=== PATIENT | female | born 1955 | race Caucasian/White ===

== ENCOUNTER 2021-04-27 12:29 | Emergency (ER) | payer MEDICAID ==
[~2021-04-27] VITALS: Ht 165.1 cm; Wt 113.6 kg
[2021-04-27 12:41] VITALS: BP 167/92
[2021-04-27] MEDS ORDERED: lactulose 20gm/30ml cup PO ONE (17:10)
[2021-04-27] MEDS ORDERED: POLY17PO10 PO (17:14)
== END 2021-04-27 18:29 | disposition home or self-care (01) ==
LOC: ER 12:30
DX: K59.00 Constipation, unspecified (principal); R10.84 Generalized abdominal pain; Z88.1 Allergy status to other antibiotic agents; Z88.8 Allergy status to other drugs, medicaments and biological substances
CPT/HCPCS: 74176; 99284

== ENCOUNTER 2021-05-06 17:45 | Emergency (ER) | payer MEDICAID ==
[~2021-05-06] VITALS: Ht 167.6 cm; Wt 84.1 kg
[~2021-05-06 17:45] MED LIST: POLY17PO10 PO
--- NOTE | 2021-05-06 18:27 | NUR ---
assumed care of pt. pt roomed in bed 8. pt lying comfortably in [facility].
[2021-05-06 18:56] LABS: BASOPHILS # (AUTO) 0.1 X10'3 (0-0.2); BASOPHILS % (AUTO) 1.3 % (0-1); EOSINOPHILS # (AUTO) 0.1 X10'3 (0-0.9); EOSINOPHILS % (AUTO) 1.7 % (0-6); HEMATOCRIT 37.4 % (35.0-45.0); HEMOGLOBIN 13.2 g/dl (12.0-16.0); LYMPHOCYTES # (AUTO) 1.4 X10'3 (1.1-4.8); LYMPHOCYTES % (AUTO) 17.2 % (21-51); MEAN CORPUSCULAR HEMOGLOBIN 29.3 PG (27.0-31.0); MEAN CORPUSCULAR HGB CONC 35.3 g/dL (33.0-36.5); MEAN PLATELET VOLUME 6.3 FL (7.4-10.4); MONOCYTES % (AUTO) 12.1 % (2-12); NEUTROPHILS # (AUTO) 5.6 X10'3 (1.8-7.7); NEUTROPHILS % (AUTO) 67.7 % (42-75); PLATELET COUNT 358 X10'3 (140-440); RED CELL DISTRIBUTION WIDTH 13.5 % (11.5-14.5); WHITE BLOOD COUNT 8.2 X10'3 (4.5-11.0)
[2021-05-06 19:13] LABS: ALANINE AMINOTRANSFERASE 24 U/L (12-78); ALBUMIN 3.6 G/DL (3.4-5.0); ALBUMIN/GLOBULIN RATIO 1.1 (1.1-1.5); ALKALINE PHOSPHATASE 79 IU/L (46-116); ANION GAP 6 (8-16); ASPARTATE AMINO TRANSFERASE 18 U/L (10-37); BILIRUBIN,TOTAL 0.3 MG/DL (0.1-1.0); BLOOD UREA NITROGEN 12 MG/DL (7-18); BUN/CREATININE RATIO 10.8 (6.6-38.0); CALCIUM 9.3 MG/DL (8.5-10.1); CHLORIDE 94 MMOL/L (99-107); CREATININE 1.11 MG/DL (0.40-0.90); GLUCOSE 90 MG/DL (70-104); POTASSIUM 4.3 MMOL/L (3.5-5.1); SODIUM 126 MMOL/L (135-145); TOTAL CARBON DIOXIDE 26.4 MMOL/L (24-32); TOTAL PROTEIN 6.9 G/DL (6.4-8.2); eGFR 49 ML/MIN
[2021-05-06 19:26] LABS: ACETAMINOPHEN < 2.0 UG/ML (10-30); ETHANOL < 0.010 GM/DL (0.0-0.010)
[2021-05-06] MEDS ORDERED: OLANZapine 5mg rapidly disint. tablet PO ONE (19:40)
--- NOTE | 2021-05-06 19:50 | NUR ---
[employer] [facility] [place], ELIU, CALLED TO CHECK UP ON PT'S STATUS. HER PHONE NUMBER IS [phone].
[2021-05-06 19:57] LABS: CLARITY,URINE CLEAR (Clear); COLOR,URINE YELLOW (Yellow); GLUCOSE, URINE NEGATIVE (Neg); KETONES,URINE NEGATIVE (Neg); LEUKOCYTE ESTERASE ,URINE NEGATIVE (Neg); NITRITES, URINE NEGATIVE (Neg); OCCULT BLOOD,URINE TRACE-INTACT (Neg); PH,URINE 6.5 (4.8-8.0); PROTEIN,URINE NEGATIVE (Neg); UA COLLECTION TYPE NON-SPECIFIED; UROBILINOGEN,URINE 0.2 E.U/dL (0.2-1.0)
--- NOTE | 2021-05-06 20:00 | NUR ---
PT SITTING ON BED CALMLY. INTERVIEWED PT BRIEFLY. SHE STATED THAT SHE HAS BEEN HALLUCINATING MORE RECENTLY AND TODAY HAD A DESIRE TO "CUT HEART WITH A KNIFE". SHE STATED THAT SHE "STOPPED [HER]SELF" FROM DOING IT. SHE HAS NO OTHER COMPLAINTS. PT IS ABLE TO AMBULATE FROM [place] TO BEDSIDE COMMODE. PT MAKES EYE CONTACT WHEN SPEAKING THOUGH W/ FLAT AFFECT; OVERALL POLITE.
[2021-05-06 20:07] LABS: URINE AMPHETAMINE SCREEN NEGATIVE (Neg); URINE BARBITUATE SCREEN NEGATIVE (Neg); URINE BENZODIAZEPINES SCREEN NEGATIVE (Neg); URINE CANNABINOID SCREEN NEGATIVE (Neg); URINE COCAINE SCREEN NEGATIVE (Neg); URINE METHADONE SCREEN NEGATIVE (Neg); URINE OPIATE SCREEN NEGATIVE (Neg); URINE PHENCYCLIDINE SCREEN NEGATIVE (Neg)
[2021-05-06 20:09] LABS: BACTERIA,URINE NONE SEEN /HPF (Neg); RBC,URINE 0-2 /HPF (0-2); SQUAMOUS EPITHELIAL CELL,UR NONE SEEN /LPF (FEW); WBC,URINE NONE SEEN /HPF (0-4)
--- NOTE | 2021-05-06 21:00 | NUR ---
PT IS LYING DOWN IN BED COMFORTABLY. ANSWERS QUESTIONS BUT DOES NOT INITIATE CONVERSATION
--- NOTE | 2021-05-06 22:00 | NUR ---
PT IS LYING DOWN IN [facility] WATCHING PEOPLE WALK UP AND DOWN SEE.
--- NOTE | 2021-05-06 23:00 | NUR ---
PT IS ATTEMPTING TO SLEEP. LIGHTS HAVE BEEN DIMMED W/ PT'S PERMISSION
--- NOTE | 2021-05-07 | NUR ---
PT IS SLEEPING COMFORTABLY
--- NOTE | 2021-05-07 01:00 | NUR ---
PT IS SLEEPING COMFORTABLY
--- NOTE | 2021-05-07 02:00 | NUR ---
PT GOT UP TO USE BEDSIDE COMMODE.
[2021-05-07 02:46] VITALS: BP 145/64
--- NOTE | 2021-05-07 03:00 | NUR ---
PT CHANGED INTO GREEN SCRUBS
--- NOTE | 2021-05-07 04:29 | NUR ---
PT GOT UP TO USE BEDSIDE COMMODE.
--- NOTE | 2021-05-07 05:30 | NUR ---
PT MOVED TO HER RIGHT SIDE AND CONTINUES TO SLEEP
--- NOTE | 2021-05-07 06:50 | NUR ---
pt resting in bed quietly ,will cont to monitor.
--- NOTE | 2021-05-07 08:10 | NUR ---
PACKET FAXED TO [facility]
--- NOTE | 2021-05-07 08:47 | NUR ---
ELIU [phone] PLEASE CALL WITH UPDATE WHEN AVAILABE
--- NOTE | 2021-05-07 09:21 | NUR ---
[facility] EVAL AT BEDSIDE .
--- NOTE | 2021-05-07 10:01 | NUR ---
CALLED ALMAZ CHARLES FOR PT TO BE DISCHARGED AND TAKEN BACK TO [facility]...[phone]
== END 2021-05-07 11:29 | disposition home or self-care (01) ==
LOC: ER 17:45
DX: R45.851 Suicidal ideations (principal); E87.1 Hypo-osmolality and hyponatremia; F20.9 Schizophrenia, unspecified; F41.9 Anxiety disorder, unspecified; Z87.19 Personal history of other diseases of the digestive system; Z88.2 Allergy status to sulfonamides; Z88.8 Allergy status to other drugs, medicaments and biological substances; Z79.899 Other long term (current) drug therapy
CPT/HCPCS: 36415; 80053; 80305; 80320; 80329; 81001; 84295; 84443; 85025; 99285

== ENCOUNTER 2022-08-31 15:06 | Emergency (ER) | payer MEDICAID ==
[~2022-08-31] VITALS: Ht 172.7 cm; Wt 127.3 kg
[2022-08-31 17:36] LABS: BASOPHILS % (AUTO) 0.5 % (0-1); EOSINOPHILS # (AUTO) 0.2 X10'3 (0-0.9); HEMATOCRIT 42.1 % (35.0-45.0); HEMOGLOBIN 13.6 g/dl (12.0-16.0); LYMPHOCYTES # (AUTO) 1.8 X10'3 (1.1-4.8); MEAN CORPUSCULAR HEMOGLOBIN 29.3 PG (27.0-31.0); MEAN CORPUSCULAR HGB CONC 32.2 g/dL (33.0-36.5); MEAN PLATELET VOLUME 6.4 FL (7.4-10.4); MONOCYTES # (AUTO) 0.8 X10'3 (0-0.9); MONOCYTES % (AUTO) 12.9 % (2-12); NEUTROPHILS # (AUTO) 3.7 X10'3 (1.8-7.7); NEUTROPHILS % (AUTO) 56.6 % (42-75); PLATELET COUNT 304 X10'3 (140-440); RED BLOOD COUNT 4.63 X10'6 (4.20-5.60); RED CELL DISTRIBUTION WIDTH 13.5 % (11.5-14.5); WHITE BLOOD COUNT 6.5 X10'3 (4.5-11.0)
[2022-08-31 17:57] LABS: ALANINE AMINOTRANSFERASE 24 U/L (12-78); ALBUMIN 3.8 G/DL (3.4-5.0); ALBUMIN/GLOBULIN RATIO 1.1 (1.1-1.5); ALKALINE PHOSPHATASE 87 IU/L (46-116); ANION GAP 7 (8-16); ASPARTATE AMINO TRANSFERASE 23 U/L (10-37); BILIRUBIN,TOTAL 0.3 MG/DL (0.1-1.0); BLOOD UREA NITROGEN 9 MG/DL (7-18); BUN/CREATININE RATIO 8.4 (10.0-20.0); CALCIUM 10.2 MG/DL (8.5-10.1); CHLORIDE 103 MMOL/L (99-107); CREATININE 1.07 MG/DL (0.40-0.90); GLUCOSE 105 MG/DL (70-104); POTASSIUM 4.1 MMOL/L (3.5-5.1); SODIUM 139 MMOL/L (135-145); TOTAL CARBON DIOXIDE 28.9 MMOL/L (24-32); TOTAL PROTEIN 7.4 G/DL (6.4-8.2); eGFR 51 ML/MIN
[2022-08-31 18:01] LABS: CLARITY,URINE CLEAR (Clear); COLOR,URINE YELLOW (Yellow); GLUCOSE, URINE NEGATIVE (Neg); KETONES,URINE NEGATIVE (Neg); LEUKOCYTE ESTERASE ,URINE NEGATIVE (Neg); NITRITES, URINE NEGATIVE (Neg); OCCULT BLOOD,URINE TRACE-INTACT (Neg); PH,URINE 7.5 (4.8-8.0); PROTEIN,URINE NEGATIVE (Neg)
[2022-08-31 18:03] VITALS: BP 158/79
[2022-08-31 18:05] LABS: UA COLLECTION TYPE CLN CATCH MIDSTREAM
[2022-08-31 18:06] LABS: BACTERIA,URINE NONE SEEN /HPF (Neg); MUCUS STRANDS FEW /LPF (Neg); RBC,URINE 0-2 /HPF (0-2); SQUAMOUS EPITHELIAL CELL,UR FEW /LPF (FEW); WBC,URINE 0-4 /HPF (0-4)
== END 2022-08-31 21:56 ==
LOC: ER 15:06
DX: R40.4 Transient alteration of awareness (principal); F31.9 Bipolar disorder, unspecified; F20.9 Schizophrenia, unspecified; Z88.2 Allergy status to sulfonamides
CPT/HCPCS: 36415; 80053; 81001; 85025; 93005; 99284

== ENCOUNTER 2022-09-01 20:04 | Emergency (ER) | payer MEDICAID ==
[~2022-09-01] VITALS: Ht 152.4 cm; Wt 107.7 kg
[2022-09-01 20:27] VITALS: BP 142/80
== END 2022-09-01 22:26 | disposition home or self-care (01) ==
LOC: ER 20:04
DX: F20.9 Schizophrenia, unspecified (principal); F31.9 Bipolar disorder, unspecified; Z88.2 Allergy status to sulfonamides; Z88.8 Allergy status to other drugs, medicaments and biological substances; Z79.899 Other long term (current) drug therapy
CPT/HCPCS: 99283

== ENCOUNTER 2022-10-23 18:49 | Emergency (ER) | payer MEDICAID ==
[~2022-10-23] VITALS: Ht 157.5 cm; Wt 109.1 kg
[2022-10-23 19:05] VITALS: BP 154/74
== END 2022-10-23 20:34 | disposition home or self-care (01) ==
LOC: ER 18:50
DX: S09.90XA Unspecified injury of head, initial encounter (principal); F31.9 Bipolar disorder, unspecified; F20.9 Schizophrenia, unspecified; Z79.899 Other long term (current) drug therapy; Z88.2 Allergy status to sulfonamides; Z88.8 Allergy status to other drugs, medicaments and biological substances; W18.39XA Other fall on same level, initial encounter; Y93.89 Activity, other specified; Y92.89 Other specified places as the place of occurrence of the external cause; Y99.8 Other external cause status
CPT/HCPCS: 70450; 99284

== ENCOUNTER 2023-05-19 18:02 | Emergency (ER) | payer MEDICAID ==
[~2023-05-19] VITALS: Ht 165.1 cm; Wt 135.0 kg
[2023-05-19 18:27] VITALS: TEMP 98.4
[2023-05-19] MEDS ORDERED: TETanus/Pertussis (Acell)/Diphther VAC/PF (Tdap-Adult) 0.5ml syringe IMVAC ONE (20:20)
[2023-05-19] MEDS ORDERED: celeCOXIB 100mg capsule PO ONE (21:50)
[2023-05-19] MEDS ORDERED: traMADol 50MG tablet PO ONE (22:20)
[2023-05-19 22:35] VITALS: BP 157/81; PULSE 54; RESP 18; O2SAT 100
== END 2023-05-19 22:37 | disposition home or self-care (01) ==
LOC: ER 18:03
DX: S16.1XXA Strain of muscle, fascia and tendon at neck level, initial encounter (principal); S00.31XA Abrasion of nose, initial encounter; G80.8 Other cerebral palsy; W18.39XA Other fall on same level, initial encounter; Y93.89 Activity, other specified; Y92.89 Other specified places as the place of occurrence of the external cause; Y99.8 Other external cause status
CPT/HCPCS: 70450; 72125; 90471; 90715; 93005; 99285; L0172

== ENCOUNTER 2023-06-02 13:04 | Inpatient (IN) | payer MEDICAID ==
[~2023-06-02] VITALS: Ht 165.1 cm; Wt 109.4 kg
[2023-06-02] MEDS ORDERED: iohexol 350MG/ML 100ml bottle IV ONE (13:31)
[2023-06-02 13:53] LABS: BASOPHILS % (AUTO) 0.4 % (0-1); EOSINOPHILS % (AUTO) 0 % (0-6); HEMATOCRIT 36.9 % (35.0-45.0); HEMOGLOBIN 12.5 g/dl (12.0-16.0); LYMPHOCYTES # (AUTO) 0.6 X10'3 (1.1-4.8); MEAN CORPUSCULAR HEMOGLOBIN 29.5 PG (27.0-31.0); MEAN CORPUSCULAR HGB CONC 33.8 g/dL (33.0-36.5); MEAN CORPUSCULAR VOLUME 87.2 FL (78-98); MEAN PLATELET VOLUME 6.7 FL (7.4-10.4); MONOCYTES % (AUTO) 13.8 % (2-12); NEUTROPHILS # (AUTO) 5.8 X10'3 (1.8-7.7); NEUTROPHILS % (AUTO) 77.8 % (42-75); PLATELET COUNT 206 X10'3 (140-440); RED BLOOD COUNT 4.23 X10'6 (4.20-5.60); WHITE BLOOD COUNT 7.4 X10'3 (4.5-11.0)
[2023-06-02 14:10] LABS: APTT 34 SECONDS (22-32); INR 1.1 INR; PROTHROMBIN TIME 11.5 SECONDS (9.0-12.0)
[2023-06-02] MEDS ORDERED: ringers solution, lacted 1,000 ML IV ONE (14:15)
[2023-06-02 14:29] LABS: ALANINE AMINOTRANSFERASE 38 U/L (12-78); ALBUMIN/GLOBULIN RATIO 0.9 (1.1-1.5); ALKALINE PHOSPHATASE 75 IU/L (46-116); ANION GAP 12 (8-16); ASPARTATE AMINO TRANSFERASE 36 U/L (10-37); BILIRUBIN,TOTAL 0.7 MG/DL (0.1-1.0); BLOOD UREA NITROGEN 11 MG/DL (7-18); BUN/CREATININE RATIO 8.5 (10.0-20.0); CALCIUM 8.4 MG/DL (8.5-10.1); CHLORIDE 94 MMOL/L (99-107); GLUCOSE 117 MG/DL (70-104); POTASSIUM 3.3 MMOL/L (3.5-5.1); SODIUM 126 MMOL/L (135-145); TOTAL CARBON DIOXIDE 20.4 MMOL/L (24-32); TOTAL PROTEIN 6.3 G/DL (6.4-8.2); eGFR 41 ML/MIN
[2023-06-02 14:37] LABS: PRO BRAIN NATRIURETIC PEPTIDE 5370 PG/ML (0-125)
[2023-06-02] MEDS ORDERED: ZOLP5TAB8 PO (15:33)
[2023-06-02] MEDS ORDERED: OMEP20CA16 PO (15:33)
[2023-06-02] MEDS ORDERED: CLON-527 PO (15:34)
[2023-06-02] MEDS ORDERED: QUET-1 PO (15:34)
[2023-06-02] MEDS ORDERED: FERR325T35 PO (15:36)
[2023-06-02] MEDS ORDERED: FLUO20CA39 PO (15:42)
[2023-06-02] MEDS ORDERED: LURA20TA8 PO (15:42)
[2023-06-02] MEDS ORDERED: CHOL50004 PO (15:42)
[2023-06-02] MEDS ORDERED: LURA120T PO (15:42)
[2023-06-02] MEDS ORDERED: TRAM50TA2 PO (15:42)
[2023-06-02 16:24] LABS: BILIRUBIN,URINE NEGATIVE (Neg); CLARITY,URINE CLEAR (Clear); COLOR,URINE YELLOW (Yellow); GLUCOSE, URINE NEGATIVE (Neg); KETONES,URINE NEGATIVE (Neg); LEUKOCYTE ESTERASE ,URINE NEGATIVE (Neg); NITRITES, URINE NEGATIVE (Neg); OCCULT BLOOD,URINE TRACE-INTACT (Neg); PROTEIN,URINE NEGATIVE (Neg); UROBILINOGEN,URINE 0.2 E.U/dL (0.2-1.0)
[2023-06-02 16:27] LABS: UA COLLECTION TYPE FOLEY CATH
[2023-06-02 16:34] LABS: WBC,URINE 0-4 /HPF (0-4)
[2023-06-02 16:35] LABS: BACTERIA,URINE NONE SEEN /HPF (Neg); MUCUS STRANDS NONE SEEN /LPF (Neg); RBC,URINE 0-2 /HPF (0-2); SQUAMOUS EPITHELIAL CELL,UR FEW /LPF (FEW)
[2023-06-02] MEDS ORDERED: temazepam 15mg capsule PO PRN (21:00)
[2023-06-02] MEDS ORDERED: ondansetron 4mg rapidly disintigrating tab PO PRN (21:45)
[2023-06-02] MEDS ORDERED: bisacodyl 10mg suppository rectal RC PRN (21:45)
[2023-06-02] MEDS ORDERED: acetaminophen 325mg tablet PO PRN ×2 (21:45)
[2023-06-02] MEDS ORDERED: morphine 2 MG/ML inj. syringe IV PRN (21:45)
[2023-06-02] MEDS ORDERED: mag hydrox/Alum hydrox/simeth 30ml oral suspension PO PRN (21:45)
[2023-06-02] MEDS ORDERED: ondansetron/PF 4mg/2ml inj IV PRN (21:45)
[2023-06-02] MEDS ORDERED: potassium Cl 20 mEq SR tablet PO PRN ×2 (21:45)
[2023-06-02] MEDS ORDERED: magnesium hydroxide 30ml (MOM) UD suspension PO PRN (21:45)
[2023-06-02] MEDS ORDERED: diphenhydrAMINE 25mg capsule PO PRN (21:45)
[2023-06-02] MEDS ORDERED: diphenhydrAMINE 50 mg/ml inj IV PRN (21:45)
[2023-06-02] MEDS ORDERED: potassium Cl 40MEQ/1/2NS 520ml 520 ML IV PRN (21:45)
[2023-06-02] MEDS ORDERED: HYDROcodone/acetaminophen 5mg/325mg tablet PO PRN (21:45)
[2023-06-02] MEDS ORDERED: potassium Cl 20mEq in NS 1,000 ML IV SCH (21:45)
[2023-06-02 22:08] LABS: HEMOGLOBIN A1C 5.4 % (4.5-6.2)
[2023-06-02 22:10] LABS: MAGNESIUM 1.5 MG/DL (1.5-2.4)
[2023-06-02 23:58] LABS: APTT 26 SECONDS (22-32); D-DIMER 0.62 MG/L FEU (0-0.50); PROTHROMBIN TIME 10.5 SECONDS (9.0-12.0)
[2023-06-03] MEDS ORDERED: TRAM50TA2 PO (01:39)
[2023-06-03] MEDS ORDERED: CLON-527 PO (01:42)
[2023-06-03] MEDS ORDERED: benzotropine (01:48)
[2023-06-03] MEDS ORDERED: Metoprolol (01:50)
[2023-06-03 01:51] VITALS: BP 143/68; PULSE 68; RESP 16; TEMP 98.1; O2SAT 97
[2023-06-03 03:14] LABS: URINE AMPHETAMINE SCREEN NEGATIVE (Neg); URINE BARBITUATE SCREEN NEGATIVE (Neg); URINE BENZODIAZEPINES SCREEN NEGATIVE (Neg); URINE CANNABINOID SCREEN NEGATIVE (Neg); URINE COCAINE SCREEN NEGATIVE (Neg); URINE METHADONE SCREEN NEGATIVE (Neg); URINE OPIATE SCREEN NEGATIVE (Neg); URINE PHENCYCLIDINE SCREEN NEGATIVE (Neg)
[2023-06-03 06:00] VITALS: BP 136/61; PULSE 61; RESP 14; TEMP 99.1; O2SAT 97
[2023-06-03 06:56] LABS: BASOPHILS % (AUTO) 0.3 % (0-1); EOSINOPHILS % (AUTO) 0.1 % (0-6); HEMATOCRIT 35.8 % (35.0-45.0); HEMOGLOBIN 11.9 g/dl (12.0-16.0); LYMPHOCYTES # (AUTO) 0.8 X10'3 (1.1-4.8); LYMPHOCYTES % (AUTO) 17.5 % (21-51); MEAN CORPUSCULAR HEMOGLOBIN 29.3 PG (27.0-31.0); MEAN CORPUSCULAR HGB CONC 33.3 g/dL (33.0-36.5); MONOCYTES # (AUTO) 0.8 X10'3 (0-0.9); MONOCYTES % (AUTO) 17.4 % (2-12); NEUTROPHILS # (AUTO) 3.1 X10'3 (1.8-7.7); NEUTROPHILS % (AUTO) 64.7 % (42-75); PLATELET COUNT 168 X10'3 (140-440); RED BLOOD COUNT 4.07 X10'6 (4.20-5.60); RED CELL DISTRIBUTION WIDTH 13.1 % (11.5-14.5); WHITE BLOOD COUNT 4.9 X10'3 (4.5-11.0)
[2023-06-03 07:02] LABS: ALANINE AMINOTRANSFERASE 50 U/L (12-78); ALBUMIN 3.2 G/DL (3.4-5.0); ALBUMIN/GLOBULIN RATIO 0.9 (1.1-1.5); ALKALINE PHOSPHATASE 69 IU/L (46-116); ANION GAP 6 (8-16); ASPARTATE AMINO TRANSFERASE 43 U/L (10-37); BILIRUBIN,TOTAL 0.5 MG/DL (0.1-1.0); BLOOD UREA NITROGEN 11 MG/DL (7-18); BUN/CREATININE RATIO 12.4 (10.0-20.0); CHLORIDE 94 MMOL/L (99-107); CHOL/HDL RATIO 1.7 (0.00-4.99); CHOLESTEROL 81 MG/DL (0-200); CREATININE 0.89 MG/DL (0.40-0.90); GLUCOSE 93 MG/DL (70-104); HDL CHOLESTEROL 47 MG/DL (35-60); LDL CHOLESTEROL 26 MG/DL (50-100); MAGNESIUM 1.8 MG/DL (1.5-2.4); POTASSIUM 3.7 MMOL/L (3.5-5.1); SODIUM 126 MMOL/L (135-145); TOTAL CARBON DIOXIDE 25.6 MMOL/L (24-32); TOTAL PROTEIN 6.8 G/DL (6.4-8.2); TRIGLYCERIDES 39 MG/DL (20-135); eCRCL 56 ML/MIN; eGFR 63 ML/MIN
[2023-06-03] MEDS ORDERED: FLUoxetine 20mg capsule PO PRN (07:40)
[2023-06-03] MEDS ORDERED: traMADol 50MG tablet PO PRN (07:40)
[2023-06-03] MEDS ORDERED: LOP12.5T PO (08:01)
[2023-06-03 08:40] LABS: PLATELET ESTIMATE NORMAL; TOTAL CELLS COUNTED 100
[2023-06-03] MEDS: cholecalciferol (vitamin D3) 1,000 unit (25mcg) tablet PO SCH (09:57)
[2023-06-03] MEDS: docusate sod 100mg capsule PO SCH ×2 (09:58→17:18)
[2023-06-03] MEDS: ferrous sulfate 325mg tablet PO SCH (09:58)
[2023-06-03 10:00] VITALS: BP 142/67; PULSE 71; RESP 15; TEMP 99; O2SAT 95
[2023-06-03] MEDS: metoprolol tartrate 25mg tablet PO SCH (10:00)
[2023-06-03] MEDS: heparin, porcine 5000 units/ml vial SQ SCH ×2 (10:04→21:01)
[2023-06-03] MEDS: pantoprazole 40mg Tablet.DR PO SCH (10:06)
[2023-06-03] MEDS: normal saline 1000ml 1,000 ML IV SCH ×2 (10:14→17:45)
[2023-06-03] MEDS ORDERED: lurasidone 60mg tablet PO SCH (21:00)
[2023-06-03] MEDS ORDERED: benztropine 1mg tablet PO SCH (21:00)
[2023-06-03] MEDS ORDERED: quetiapine 100mg tablet PO SCH (21:00)
[2023-06-03] MEDS ORDERED: zolpidem 5mg tablet PO SCH (21:00)
[2023-06-03 22:00] VITALS: BP 150/68; PULSE 72; RESP 22; TEMP 101.3; TEMP 101.8; O2SAT 96
[2023-06-03 22:09] VITALS: TEMP 101.3
[2023-06-03 22:57] VITALS: TEMP 98.1
[2023-06-04] MEDS: normal saline 1000ml 1,000 ML IV SCH ×2 (03:45→12:30)
[2023-06-04 06:00] VITALS: BP 166/108; PULSE 72; RESP 20; TEMP 98.8; O2SAT 95
[2023-06-04 06:55] LABS: BASOPHILS % (AUTO) 0.1 % (0-1); EOSINOPHILS % (AUTO) 0 % (0-6); HEMATOCRIT 34.7 % (35.0-45.0); HEMOGLOBIN 11.9 g/dl (12.0-16.0); LYMPHOCYTES # (AUTO) 0.9 X10'3 (1.1-4.8); LYMPHOCYTES % (AUTO) 17.5 % (21-51); MEAN CORPUSCULAR HEMOGLOBIN 29.6 PG (27.0-31.0); MEAN CORPUSCULAR HGB CONC 34.4 g/dL (33.0-36.5); MEAN CORPUSCULAR VOLUME 86.1 FL (78-98); MONOCYTES # (AUTO) 0.6 X10'3 (0-0.9); MONOCYTES % (AUTO) 10.9 % (2-12); NEUTROPHILS # (AUTO) 3.7 X10'3 (1.8-7.7); NEUTROPHILS % (AUTO) 71.5 % (42-75); PLATELET COUNT 182 X10'3 (140-440); RED BLOOD COUNT 4.03 X10'6 (4.20-5.60); RED CELL DISTRIBUTION WIDTH 13.2 % (11.5-14.5); WHITE BLOOD COUNT 5.2 X10'3 (4.5-11.0)
[2023-06-04 07:26] LABS: ALANINE AMINOTRANSFERASE 40 U/L (12-78); ALBUMIN 2.8 G/DL (3.4-5.0); ALBUMIN/GLOBULIN RATIO 0.8 (1.1-1.5); ALKALINE PHOSPHATASE 66 IU/L (46-116); ANION GAP 7 (8-16); ASPARTATE AMINO TRANSFERASE 41 U/L (10-37); BILIRUBIN,TOTAL 0.4 MG/DL (0.1-1.0); BLOOD UREA NITROGEN 8 MG/DL (7-18); CHLORIDE 96 MMOL/L (99-107); GLUCOSE 92 MG/DL (70-104); MAGNESIUM 1.6 MG/DL (1.5-2.4); POTASSIUM 3.4 MMOL/L (3.5-5.1); SODIUM 127 MMOL/L (135-145); TOTAL CARBON DIOXIDE 23.7 MMOL/L (24-32); TOTAL PROTEIN 6.3 G/DL (6.4-8.2); eCRCL 62 ML/MIN; eGFR 72 ML/MIN
[2023-06-04] MEDS ORDERED: metoprolol tartrate 12.5mg (1/2 tablet) PO SCH (08:00)
[2023-06-04] MEDS ORDERED: non-formulary drug (Omeprazole 1 CAP) PO SCH (08:00)
[2023-06-04] MEDS: docusate sod 100mg capsule PO SCH (08:00)
[2023-06-04] MEDS: heparin, porcine 5000 units/ml vial SQ SCH (08:26)
[2023-06-04] MEDS: ferrous sulfate 325mg tablet PO SCH (08:30)
[2023-06-04] MEDS: cholecalciferol (vitamin D3) 1,000 unit (25mcg) tablet PO SCH (08:30)
[2023-06-04] MEDS: pantoprazole 40mg Tablet.DR PO SCH (08:30)
[2023-06-04] MEDS: metoprolol tartrate 25mg tablet PO SCH (08:37)
[2023-06-04 08:41] VITALS: RESP 18
[2023-06-04 10:00] VITALS: BP 140/85; PULSE 62; RESP 18; TEMP 98.2; O2SAT 95
[2023-06-04] MEDS: sodium chloride 1gm tablet PO SCH ×2 (14:21→17:31)
[2023-06-04] MEDS ORDERED: SODI1TAB2 PO (14:56)
== END 2023-06-04 17:45 | disposition home or self-care (01) | DRG 426 ==
LOC: ER 13:05 → ED HOLD 21:50 → ORTHO 4S 06-03 01:05
PROVIDERS: ADMIT Family Medicine; ATTEND Family Medicine
DX: E87.1 Hypo-osmolality and hyponatremia (principal); I50.33 Acute on chronic diastolic (congestive) heart failure; E88.09 Other disorders of plasma-protein metabolism, not elsewhere classified; I69.351 Hemiplegia and hemiparesis following cerebral infarction affecting right dominant side; R56.9 Unspecified convulsions; E86.1 Hypovolemia; E66.01 Morbid (severe) obesity due to excess calories; Z68.41 Body mass index [BMI] 40.0-44.9, adult; J44.9 Chronic obstructive pulmonary disease, unspecified; E87.6 Hypokalemia; F20.9 Schizophrenia, unspecified; F31.9 Bipolar disorder, unspecified; G89.4 Chronic pain syndrome; K21.9 Gastro-esophageal reflux disease without esophagitis; N18.9 Chronic kidney disease, unspecified; Z88.0 Allergy status to penicillin; Z88.2 Allergy status to sulfonamides; Z88.3 Allergy status to other anti-infective agents; Z79.899 Other long term (current) drug therapy
CPT/HCPCS: 36415; 70450; 70496; 70498; 70551; 71045; 74176; 80053; 80061; 80305; 81001; 82140; 82607; 83036; 83605; 83735; 83880; 83930; 84100; 84145; 84443; 84484; 85007; 85025; 85379; 85610; 85730; 87040; 87081; 93306; 93971; 97161; 97530; 99285; A4314; A4333; A5200; G0378; J1644; J3480; J3490; J7030; J7120; Q9967

== ENCOUNTER 2023-06-04 20:32 | Inpatient (IN) | payer MEDICAID ==
[~2023-06-04] VITALS: Ht 154.9 cm; Wt 110.7 kg
[~2023-06-04 20:32] MED LIST changes: +CHOL50004 PO; +CLON-527 PO; +FERR325T35 PO; +FLUO20CA39 PO; +LOP12.5T PO; +LURA120T PO; +LURA20TA8 PO; +OMEP20CA16 PO; -POLY17PO10 PO; +QUET-1 PO; +SODI1TAB2 PO; +TRAM50TA2 PO; +ZOLP5TAB8 PO; +benzotropine
[2023-06-04 22:43] LABS: BASOPHILS % (AUTO) 0.7 % (0-1); EOSINOPHILS % (AUTO) 0 % (0-6); HEMATOCRIT 34.5 % (35.0-45.0); HEMOGLOBIN 11.8 g/dl (12.0-16.0); LYMPHOCYTES # (AUTO) 0.5 X10'3 (1.1-4.8); LYMPHOCYTES % (AUTO) 7.6 % (21-51); MEAN CORPUSCULAR HEMOGLOBIN 29.4 PG (27.0-31.0); MEAN CORPUSCULAR HGB CONC 34.3 g/dL (33.0-36.5); MEAN CORPUSCULAR VOLUME 85.6 FL (78-98); MEAN PLATELET VOLUME 6.7 FL (7.4-10.4); MONOCYTES # (AUTO) 0.6 X10'3 (0-0.9); MONOCYTES % (AUTO) 9.5 % (2-12); NEUTROPHILS # (AUTO) 5.3 X10'3 (1.8-7.7); NEUTROPHILS % (AUTO) 82.2 % (42-75); PLATELET COUNT 196 X10'3 (140-440); RED BLOOD COUNT 4.03 X10'6 (4.20-5.60); RED CELL DISTRIBUTION WIDTH 13.2 % (11.5-14.5); WHITE BLOOD COUNT 6.5 X10'3 (4.5-11.0)
[2023-06-04 23:01] LABS: ALANINE AMINOTRANSFERASE 46 U/L (12-78); ALBUMIN 2.9 G/DL (3.4-5.0); ALBUMIN/GLOBULIN RATIO 0.8 (1.1-1.5); ALKALINE PHOSPHATASE 65 IU/L (46-116); ANION GAP 9 (8-16); ASPARTATE AMINO TRANSFERASE 40 U/L (10-37); BILIRUBIN,TOTAL 0.5 MG/DL (0.1-1.0); BLOOD UREA NITROGEN 10 MG/DL (7-18); BUN/CREATININE RATIO 11.8 (10.0-20.0); CALCIUM 8.9 MG/DL (8.5-10.1); CHLORIDE 93 MMOL/L (99-107); CREATININE 0.85 MG/DL (0.40-0.90); GLUCOSE 111 MG/DL (70-104); POTASSIUM 3.3 MMOL/L (3.5-5.1); SODIUM 126 MMOL/L (135-145); TOTAL CARBON DIOXIDE 23.6 MMOL/L (24-32); TOTAL PROTEIN 6.5 G/DL (6.4-8.2); eCRCL 49 ML/MIN; eGFR 67 ML/MIN
[2023-06-04 23:09] LABS: PRO BRAIN NATRIURETIC PEPTIDE 4011 PG/ML (0-125)
[2023-06-04] MEDS ORDERED: iohexol 350MG/ML 100ml bottle IV ONE (23:40)
[2023-06-05] MEDS ORDERED: heparin 10,000 units/1 ML INJ IV ONE (02:25)
[2023-06-05] MEDS ORDERED: azithromycin/NS 500mg/250ml 250 ML IV ONE (02:25)
[2023-06-05] MEDS ORDERED: heparin 10,000 units/1 ML INJ IV PRN ×2 (02:25→04:45)
[2023-06-05] MEDS ORDERED: CefTRIAXone/D5W-Rocephin 1gm 50 ML IV ONE (02:25)
[2023-06-05] MEDS ORDERED: heparin 25,000 UNIT/250ml bag 250 ML IV PRN ×2 (02:25→04:45)
[2023-06-05] MEDS ORDERED: furosemide 10 MG/1 ML 10ml inj IV ONE (02:25)
[2023-06-05 03:23] LABS: BASOPHILS % (AUTO) 0.1 % (0-1); EOSINOPHILS % (AUTO) 0 % (0-6); HEMATOCRIT 33.9 % (35.0-45.0); HEMOGLOBIN 11.9 g/dl (12.0-16.0); LYMPHOCYTES # (AUTO) 0.6 X10'3 (1.1-4.8); LYMPHOCYTES % (AUTO) 8.8 % (21-51); MEAN CORPUSCULAR HEMOGLOBIN 29.5 PG (27.0-31.0); MEAN CORPUSCULAR HGB CONC 35.1 g/dL (33.0-36.5); MEAN CORPUSCULAR VOLUME 84.1 FL (78-98); MEAN PLATELET VOLUME 6.7 FL (7.4-10.4); MONOCYTES # (AUTO) 0.8 X10'3 (0-0.9); MONOCYTES % (AUTO) 11.4 % (2-12); NEUTROPHILS # (AUTO) 5.3 X10'3 (1.8-7.7); NEUTROPHILS % (AUTO) 79.7 % (42-75); PLATELET COUNT 196 X10'3 (140-440); RED BLOOD COUNT 4.03 X10'6 (4.20-5.60); WHITE BLOOD COUNT 6.6 X10'3 (4.5-11.0)
[2023-06-05 03:36] LABS: APTT 35 SECONDS (22-32); PROTHROMBIN TIME 11.2 SECONDS (9.0-12.0)
[2023-06-05] MEDS ORDERED: potassium Cl 20 mEq SR tablet PO PRN (04:40)
[2023-06-05] MEDS ORDERED: ondansetron/PF 4mg/2ml inj IV PRN (04:40)
[2023-06-05] MEDS ORDERED: magnesium Cl slow-release 64mg tablet PO PRN (04:40)
[2023-06-05] MEDS ORDERED: magnesium 4gm in 100ml NS 100 ML IV PRN (04:40)
[2023-06-05] MEDS ORDERED: magnesium 2GM in 50ml NS 50 ML IV PRN (04:40)
[2023-06-05] MEDS ORDERED: potassium Cl 40MEQ/1/2NS 520ml 520 ML IV PRN (04:40)
[2023-06-05] MEDS ORDERED: acetaminophen 325mg tablet PO PRN (04:40)
[2023-06-05 05:13] LABS: BILIRUBIN,URINE NEGATIVE (Neg); CLARITY,URINE CLEAR (Clear); COLOR,URINE STRAW (Yellow); GLUCOSE, URINE NEGATIVE (Neg); KETONES,URINE NEGATIVE (Neg); LEUKOCYTE ESTERASE ,URINE TRACE (Neg); NITRITES, URINE NEGATIVE (Neg); OCCULT BLOOD,URINE SMALL (Neg); PH,URINE 6.5 (4.8-8.0); PROTEIN,URINE NEGATIVE (Neg); UROBILINOGEN,URINE 0.2 E.U/dL (0.2-1.0)
[2023-06-05 05:22] LABS: UA COLLECTION TYPE STRAIGHT CATH
[2023-06-05 05:24] LABS: BACTERIA,URINE FEW /HPF (Neg); MUCUS STRANDS NONE SEEN /LPF (Neg); RBC,URINE 0-2 /HPF (0-2); SQUAMOUS EPITHELIAL CELL,UR NONE SEEN /LPF (FEW); WBC CLUMPS,URINE FEW /HPF (NEGATIVE)
[2023-06-05] MEDS: furosemide 40mg/4ml inj IV SCH ×2 (07:37→22:36)
[2023-06-05] MEDS: azithromycin/NS 500mg/250ml 250 ML IV SCH (07:37)
[2023-06-05] MEDS: acetaminophen 325mg tablet PO SCH ×2 (07:40→16:34)
[2023-06-05] MEDS ORDERED: furosemide 40mg/4ml inj IV SCH (08:00)
[2023-06-05 09:04] LABS: ALBUMIN 3.2 G/DL (3.4-5.0); ANION GAP 12 (8-16); BLOOD UREA NITROGEN 9 MG/DL (7-18); BUN/CREATININE RATIO 10.7 (10.0-20.0); CALCIUM 9.2 MG/DL (8.5-10.1); CHLORIDE 91 MMOL/L (99-107); CREATININE 0.84 MG/DL (0.40-0.90); GLUCOSE 112 MG/DL (70-104); PRO BRAIN NATRIURETIC PEPTIDE 16108 PG/ML (0-125); SODIUM 128 MMOL/L (135-145); TOTAL CARBON DIOXIDE 24.8 MMOL/L (24-32); eCRCL 50 ML/MIN; eGFR 68 ML/MIN
[2023-06-05 09:05] LABS: POTASSIUM 2.4 MMOL/L (3.5-5.1)
[2023-06-05] MEDS: CefTRIAXone 2gm/D5W 50ml BAG 50 ML IV SCH (09:26)
[2023-06-05] MEDS ORDERED: FLUoxetine 20mg capsule PO PRN (10:05)
[2023-06-05] MEDS ORDERED: pantoprazole 40mg Tablet.DR PO ONE (10:30)
[2023-06-05] MEDS ORDERED: metoprolol tartrate 50mg tablet PO ONE (10:30)
[2023-06-05] MEDS ORDERED: pantoprazole 40mg Tablet.DR PO SCH (10:30)
[2023-06-05] MEDS ORDERED: lurasidone 20mg tablet PO SCH (10:30)
[2023-06-05] MEDS ORDERED: lurasidone 20mg tablet PO ONE (10:30)
[2023-06-05] MEDS ORDERED: metoprolol tartrate 1mg/ml inj IV ONE (12:20)
[2023-06-05] MEDS ORDERED: iohexol 350MG/ML 100ml bottle IV ONE (16:34)
[2023-06-05] MEDS ORDERED: fentaNYL/PF 50MCG/1 ML 2ML syringe ONE (16:34)
[2023-06-05] MEDS ORDERED: iohexol 350 MG/ML 50ML vial IV ONE (16:34)
[2023-06-05] MEDS ORDERED: midazolam 1 mg/ML 2ml injection ONE (16:34)
[2023-06-05] MEDS ORDERED: heparin 1,000 UNITS/NS 500ml 0 ML ONE (16:34)
[2023-06-05] MEDS ORDERED: LIDOcaine 1% 30ml preserv. free vial ONE (16:34)
[2023-06-05 18:33] LABS: MAGNESIUM 1.5 MG/DL (1.5-2.4); POTASSIUM 3.5 MMOL/L (3.5-5.1)
[2023-06-05 20:00] VITALS: RESP 18; O2SAT 97
[2023-06-05 20:05] VITALS: RESP 18; O2SAT 97
[2023-06-05] MEDS: lurasidone 60mg tablet PO SCH (22:31)
[2023-06-05] MEDS: quetiapine 100mg tablet PO SCH (22:35)
[2023-06-05] MEDS: benztropine 1mg tablet PO SCH (22:36)
[2023-06-06] VITALS (9 sets, daily range): BP systolic 109–140; BP diastolic 64–93; PULSE 73–162; RESP 16–18; TEMP 97.4–98.8; O2SAT 90–97
[2023-06-06] MEDS: acetaminophen 325mg tablet PO SCH ×3 (00:15→15:53)
[2023-06-06 05:12] LABS: BASOPHILS % (AUTO) 0.2 % (0-1); EOSINOPHILS % (AUTO) 0 % (0-6); HEMATOCRIT 38.5 % (35.0-45.0); HEMOGLOBIN 13.3 g/dl (12.0-16.0); LYMPHOCYTES # (AUTO) 0.8 X10'3 (1.1-4.8); LYMPHOCYTES % (AUTO) 12.1 % (21-51); MEAN CORPUSCULAR HEMOGLOBIN 29.5 PG (27.0-31.0); MEAN CORPUSCULAR HGB CONC 34.7 g/dL (33.0-36.5); MEAN PLATELET VOLUME 6.9 FL (7.4-10.4); MONOCYTES # (AUTO) 0.8 X10'3 (0-0.9); MONOCYTES % (AUTO) 11.9 % (2-12); NEUTROPHILS # (AUTO) 5.1 X10'3 (1.8-7.7); NEUTROPHILS % (AUTO) 75.8 % (42-75); PLATELET COUNT 219 X10'3 (140-440); RED BLOOD COUNT 4.52 X10'6 (4.20-5.60); RED CELL DISTRIBUTION WIDTH 13.2 % (11.5-14.5); WHITE BLOOD COUNT 6.7 X10'3 (4.5-11.0)
[2023-06-06 05:26] LABS: ALANINE AMINOTRANSFERASE 62 U/L (12-78); ALBUMIN 2.8 G/DL (3.4-5.0); ALBUMIN/GLOBULIN RATIO 0.7 (1.1-1.5); ALKALINE PHOSPHATASE 76 IU/L (46-116); ANION GAP 8 (8-16); ASPARTATE AMINO TRANSFERASE 65 U/L (10-37); BILIRUBIN,TOTAL 0.6 MG/DL (0.1-1.0); BLOOD UREA NITROGEN 12 MG/DL (7-18); BUN/CREATININE RATIO 11.7 (10.0-20.0); CALCIUM 9.1 MG/DL (8.5-10.1); CHLORIDE 91 MMOL/L (99-107); CREATININE 1.03 MG/DL (0.40-0.90); GLUCOSE 109 MG/DL (70-104); POTASSIUM 3.4 MMOL/L (3.5-5.1); SODIUM 127 MMOL/L (135-145); TOTAL CARBON DIOXIDE 28.5 MMOL/L (24-32); TOTAL PROTEIN 6.8 G/DL (6.4-8.2); eCRCL 40 ML/MIN; eGFR 53 ML/MIN
[2023-06-06] MEDS ORDERED: pantoprazole 40mg Tablet.DR PO SCH (07:30)
[2023-06-06] MEDS ORDERED: metoprolol tartrate 50mg tablet PO SCH (08:00)
[2023-06-06] MEDS ORDERED: lurasidone 20mg tablet PO SCH (08:00)
[2023-06-06] MEDS: azithromycin/NS 500mg/250ml 250 ML IV SCH (09:01)
[2023-06-06] MEDS: metoprolol tartrate 50mg tablet PO SCH ×2 (09:06→20:11)
[2023-06-06] MEDS: aspirin 81mg tab.chew PO SCH (09:11)
[2023-06-06] MEDS: furosemide 40mg/4ml inj IV SCH (09:12)
[2023-06-06] MEDS: pantoprazole 40mg Tablet.DR PO SCH (09:12)
[2023-06-06] MEDS: lurasidone 20mg tablet PO SCH (09:15)
[2023-06-06] MEDS: CefTRIAXone 2gm/D5W 50ml BAG 50 ML IV SCH (10:19)
[2023-06-06] MEDS ORDERED: furosemide 20 MG/2 ML vial IV ONE (15:25)
[2023-06-06] MEDS ORDERED: digoxin 250mcg/ml 2ml ampule IV ONE (15:25)
[2023-06-06] MEDS: quetiapine 100mg tablet PO SCH (20:11)
[2023-06-06] MEDS: benztropine 1mg tablet PO SCH (20:11)
[2023-06-06] MEDS: lurasidone 60mg tablet PO SCH (20:13)
[2023-06-06] MEDS ORDERED: potassium Cl 40MEQ/270ML bag 250 ML IV PRN (20:35)
[2023-06-06] MEDS ORDERED: sodium chloride 3% IV.soln 500 ML IV SCH (20:35)
[2023-06-06] MEDS ORDERED: magnesium 2GM in 50ml NS 50 ML IV PRN (20:35)
[2023-06-06] MEDS ORDERED: potassium Cl 20 mEq SR tablet PO PRN (20:35)
[2023-06-06] MEDS ORDERED: potassium Cl 40MEQ/1/2NS 520ml 520 ML IV PRN (20:35)
[2023-06-06] MEDS ORDERED: magnesium 4gm in 100ml NS 100 ML IV PRN (20:35)
[2023-06-06] MEDS ORDERED: potassium CL 10mEq/100ml bag 100 ML IV PRN (20:35)
[2023-06-06] MEDS ORDERED: potassium Cl 20mEq/100mL bag 100 ML IV PRN (20:35)
[2023-06-07] VITALS (8 sets, daily range): BP systolic 110–154; BP diastolic 52–90; PULSE 62–81; RESP 18–23; TEMP 97.7–104.9; O2SAT 90–97
[2023-06-07 02:49] LABS: ALANINE AMINOTRANSFERASE 54 U/L (12-78); ALBUMIN 2.5 G/DL (3.4-5.0); ALBUMIN/GLOBULIN RATIO 0.6 (1.1-1.5); ALKALINE PHOSPHATASE 65 IU/L (46-116); ANION GAP 9 (8-16); ASPARTATE AMINO TRANSFERASE 54 U/L (10-37); BILIRUBIN,TOTAL 0.4 MG/DL (0.1-1.0); BLOOD UREA NITROGEN 17 MG/DL (7-18); BUN/CREATININE RATIO 18.9 (10.0-20.0); CALCIUM 8.9 MG/DL (8.5-10.1); CHLORIDE 91 MMOL/L (99-107); GLUCOSE 102 MG/DL (70-104); POTASSIUM 3.6 MMOL/L (3.5-5.1); SODIUM 123 MMOL/L (135-145); TOTAL CARBON DIOXIDE 23.5 MMOL/L (24-32); TOTAL PROTEIN 6.5 G/DL (6.4-8.2); eCRCL 46 ML/MIN; eGFR 62 ML/MIN
[2023-06-07] MEDS: azithromycin/NS 500mg/250ml 250 ML IV SCH (07:34)
[2023-06-07] MEDS: furosemide 20 MG/2 ML vial IV SCH ×2 (07:36→21:47)
[2023-06-07] MEDS ORDERED: metoprolol tartrate 50mg tablet PO SCH (08:00)
[2023-06-07] MEDS: EMPAGLIFLOZIN 10 MG TABLET PO SCH (08:39)
[2023-06-07] MEDS: pantoprazole 40mg Tablet.DR PO SCH (08:41)
[2023-06-07] MEDS: atorvastatin 10mg tablet PO SCH (08:41)
[2023-06-07] MEDS: metoprolol tartrate 50mg tablet PO SCH ×2 (08:41→21:49)
[2023-06-07] MEDS: acetaminophen 325mg tablet PO SCH (08:43)
[2023-06-07] MEDS: spironolactone 25 MG tablet PO SCH (08:46)
[2023-06-07] MEDS: CefTRIAXone 2gm/D5W 50ml BAG 50 ML IV SCH (08:47)
[2023-06-07] MEDS: lurasidone 20mg tablet PO SCH ×3 (08:47→21:51)
[2023-06-07] MEDS: aspirin 81mg tab.chew PO SCH (08:52)
[2023-06-07 10:19] LABS: BASOPHILS % (AUTO) 0.2 % (0-1); EOSINOPHILS % (AUTO) 0 % (0-6); HEMATOCRIT 34.8 % (35.0-45.0); LYMPHOCYTES # (AUTO) 0.5 X10'3 (1.1-4.8); LYMPHOCYTES % (AUTO) 9.4 % (21-51); MEAN CORPUSCULAR HEMOGLOBIN 29.4 PG (27.0-31.0); MEAN CORPUSCULAR HGB CONC 34.4 g/dL (33.0-36.5); MEAN CORPUSCULAR VOLUME 85.5 FL (78-98); MEAN PLATELET VOLUME 7.1 FL (7.4-10.4); MONOCYTES # (AUTO) 0.4 X10'3 (0-0.9); MONOCYTES % (AUTO) 6.8 % (2-12); NEUTROPHILS # (AUTO) 4.5 X10'3 (1.8-7.7); NEUTROPHILS % (AUTO) 83.6 % (42-75); PLATELET COUNT 253 X10'3 (140-440); RED BLOOD COUNT 4.06 X10'6 (4.20-5.60); WHITE BLOOD COUNT 5.3 X10'3 (4.5-11.0)
[2023-06-07 10:23] LABS: ALBUMIN 2.4 G/DL (3.4-5.0); ANION GAP 10 (8-16); BLOOD UREA NITROGEN 15 MG/DL (7-18); BUN/CREATININE RATIO 13.6 (10.0-20.0); CALCIUM 9.1 MG/DL (8.5-10.1); CHLORIDE 92 MMOL/L (99-107); GLUCOSE 158 MG/DL (70-104); SODIUM 127 MMOL/L (135-145); TOTAL CARBON DIOXIDE 24.7 MMOL/L (24-32); eCRCL 37 ML/MIN; eGFR 50 ML/MIN
[2023-06-07] MEDS: potassium Cl 20 mEq SR tablet PO PRN ×2 (11:04→17:23)
[2023-06-07] MEDS: quetiapine 100mg tablet PO SCH ×2 (21:46→21:55)
[2023-06-07] MEDS: benztropine 1mg tablet PO SCH ×2 (21:47→21:51)
[2023-06-07] MEDS: lurasidone 60mg tablet PO SCH (21:54)
[2023-06-08] VITALS (8 sets, daily range): BP systolic 122–151; BP diastolic 75–91; PULSE 86–133; RESP 20–34; TEMP 97.7–98.6; O2SAT 95–96
[2023-06-08 07:16] LABS: ALANINE AMINOTRANSFERASE 49 U/L (12-78); ALBUMIN 2.3 G/DL (3.4-5.0); ALBUMIN/GLOBULIN RATIO 0.6 (1.1-1.5); ALKALINE PHOSPHATASE 62 IU/L (46-116); ANION GAP 7 (8-16); ASPARTATE AMINO TRANSFERASE 51 U/L (10-37); BILIRUBIN,TOTAL 0.4 MG/DL (0.1-1.0); BLOOD UREA NITROGEN 17 MG/DL (7-18); BUN/CREATININE RATIO 16.8 (10.0-20.0); CALCIUM 9.1 MG/DL (8.5-10.1); CHLORIDE 98 MMOL/L (99-107); CREATININE 1.01 MG/DL (0.40-0.90); GLUCOSE 99 MG/DL (70-104); POTASSIUM 3.8 MMOL/L (3.5-5.1); SODIUM 130 MMOL/L (135-145); TOTAL CARBON DIOXIDE 24.9 MMOL/L (24-32); TOTAL PROTEIN 6.3 G/DL (6.4-8.2); eCRCL 41 ML/MIN; eGFR 55 ML/MIN
[2023-06-08 07:18] LABS: BASOPHILS % (AUTO) 0.3 % (0-1); EOSINOPHILS % (AUTO) 0 % (0-6); HEMATOCRIT 35.9 % (35.0-45.0); HEMOGLOBIN 12.3 g/dl (12.0-16.0); LYMPHOCYTES # (AUTO) 0.5 X10'3 (1.1-4.8); LYMPHOCYTES % (AUTO) 9.2 % (21-51); MEAN CORPUSCULAR HEMOGLOBIN 29.5 PG (27.0-31.0); MEAN CORPUSCULAR HGB CONC 34.2 g/dL (33.0-36.5); MEAN CORPUSCULAR VOLUME 86.3 FL (78-98); MEAN PLATELET VOLUME 7.4 FL (7.4-10.4); MONOCYTES # (AUTO) 0.7 X10'3 (0-0.9); NEUTROPHILS # (AUTO) 4.3 X10'3 (1.8-7.7); NEUTROPHILS % (AUTO) 78.5 % (42-75); PLATELET COUNT 286 X10'3 (140-440); RED BLOOD COUNT 4.16 X10'6 (4.20-5.60); WHITE BLOOD COUNT 5.4 X10'3 (4.5-11.0)
[2023-06-08] MEDS: spironolactone 25 MG tablet PO SCH (08:24)
[2023-06-08] MEDS: atorvastatin 10mg tablet PO SCH (08:25)
[2023-06-08] MEDS: metoprolol tartrate 50mg tablet PO SCH ×2 (08:25→20:09)
[2023-06-08] MEDS: lurasidone 20mg tablet PO SCH (08:26)
[2023-06-08] MEDS: pantoprazole 40mg Tablet.DR PO SCH (08:26)
[2023-06-08] MEDS: acetaminophen 325mg tablet PO SCH ×2 (08:26→16:23)
[2023-06-08] MEDS: EMPAGLIFLOZIN 10 MG TABLET PO SCH (08:27)
[2023-06-08] MEDS: furosemide 20 MG/2 ML vial IV SCH ×2 (08:28→20:09)
[2023-06-08] MEDS: CefTRIAXone 2gm/D5W 50ml BAG 50 ML IV SCH (09:24)
[2023-06-08] MEDS ORDERED: furosemide 20 MG/2 ML vial IV ONE (11:10)
[2023-06-08] MEDS ORDERED: digoxin 250mcg/ml 2ml ampule IV ONE (11:15)
[2023-06-08 12:22] LABS: PRO BRAIN NATRIURETIC PEPTIDE 8956 PG/ML (0-125)
[2023-06-08] MEDS: aspirin 81mg tab.chew PO SCH (16:23)
[2023-06-08] MEDS ORDERED: diltiazem 5mg/ml 5ml inj. IV ONE (17:20)
[2023-06-08] MEDS ORDERED: diltiazem-NS 100mg/100ml 100 ML IV SCH (17:20)
[2023-06-08] MEDS ORDERED: azithromycin/NS 500mg/250ml 250 ML IV ONE (17:30)
[2023-06-08] MEDS: quetiapine 100mg tablet PO SCH (20:08)
[2023-06-08] MEDS: clonazePAM 1mg tablet PO PRN (20:08)
[2023-06-08] MEDS: benztropine 1mg tablet PO SCH (20:08)
[2023-06-08] MEDS: diltiazem 30mg tablet PO SCH (20:12)
[2023-06-08] MEDS: lurasidone 60mg tablet PO SCH (20:20)
[2023-06-09] VITALS (9 sets, daily range): BP systolic 102–153; BP diastolic 75–111; PULSE 75–116; RESP 20–32; TEMP 97.6–98.8; O2SAT 93–98
[2023-06-09] MEDS: diltiazem 30mg tablet PO SCH ×4 (02:10→20:21)
[2023-06-09] MEDS: azithromycin/NS 500mg/250ml 250 ML IV SCH (02:23)
[2023-06-09] MEDS: acetaminophen 325mg tablet PO SCH ×5 (02:26→23:25)
[2023-06-09 07:45] LABS: BASOPHILS % (AUTO) 0.3 % (0-1); EOSINOPHILS % (AUTO) 0.3 % (0-6); HEMATOCRIT 37.9 % (35.0-45.0); HEMOGLOBIN 12.7 g/dl (12.0-16.0); LYMPHOCYTES # (AUTO) 0.7 X10'3 (1.1-4.8); LYMPHOCYTES % (AUTO) 11.7 % (21-51); MEAN CORPUSCULAR HEMOGLOBIN 29.3 PG (27.0-31.0); MEAN CORPUSCULAR HGB CONC 33.4 g/dL (33.0-36.5); MEAN CORPUSCULAR VOLUME 87.7 FL (78-98); MEAN PLATELET VOLUME 7.2 FL (7.4-10.4); MONOCYTES # (AUTO) 0.9 X10'3 (0-0.9); MONOCYTES % (AUTO) 13.7 % (2-12); NEUTROPHILS # (AUTO) 4.7 X10'3 (1.8-7.7); PLATELET COUNT 300 X10'3 (140-440); RED BLOOD COUNT 4.33 X10'6 (4.20-5.60); WHITE BLOOD COUNT 6.4 X10'3 (4.5-11.0)
[2023-06-09] MEDS ORDERED: pantoprazole 40 MG vial IV SCH (08:00)
[2023-06-09 08:05] LABS: ALANINE AMINOTRANSFERASE 46 U/L (12-78); ALBUMIN 2.1 G/DL (3.4-5.0); ALBUMIN/GLOBULIN RATIO 0.5 (1.1-1.5); ALKALINE PHOSPHATASE 60 IU/L (46-116); ANION GAP 7 (8-16); ASPARTATE AMINO TRANSFERASE 53 U/L (10-37); BILIRUBIN,TOTAL 0.4 MG/DL (0.1-1.0); BLOOD UREA NITROGEN 17 MG/DL (7-18); BUN/CREATININE RATIO 18.1 (10.0-20.0); CALCIUM 9.3 MG/DL (8.5-10.1); CHLORIDE 95 MMOL/L (99-107); CREATININE 0.94 MG/DL (0.40-0.90); GLUCOSE 92 MG/DL (70-104); POTASSIUM 3.8 MMOL/L (3.5-5.1); SODIUM 128 MMOL/L (135-145); TOTAL CARBON DIOXIDE 25.9 MMOL/L (24-32); TOTAL PROTEIN 6.3 G/DL (6.4-8.2); eCRCL 44 ML/MIN; eGFR 59 ML/MIN
[2023-06-09] MEDS: furosemide 20 MG/2 ML vial IV SCH ×2 (09:08→20:20)
[2023-06-09] MEDS: CefTRIAXone 2gm/D5W 50ml BAG 50 ML IV SCH (09:10)
[2023-06-09] MEDS: lurasidone 20mg tablet PO SCH (09:15)
[2023-06-09] MEDS: spironolactone 25 MG tablet PO SCH (09:15)
[2023-06-09] MEDS: aspirin 81mg tab.chew PO SCH (09:16)
[2023-06-09] MEDS: EMPAGLIFLOZIN 10 MG TABLET PO SCH (09:16)
[2023-06-09] MEDS: atorvastatin 10mg tablet PO SCH (09:16)
[2023-06-09] MEDS: metoprolol tartrate 50mg tablet PO SCH ×2 (09:16→20:20)
[2023-06-09] MEDS ORDERED: digoxin 250mcg (0.25mg) tablet PO ONE (10:10)
[2023-06-09] MEDS ORDERED: sodium chloride 3% IV.soln 100 ML IV ONE (16:15)
[2023-06-09] MEDS: quetiapine 100mg tablet PO SCH (20:19)
[2023-06-09] MEDS: lurasidone 60mg tablet PO SCH (20:20)
[2023-06-09] MEDS: benztropine 1mg tablet PO SCH (20:21)
[2023-06-10] VITALS (7 sets, daily range): BP systolic 94–146; BP diastolic 63–80; PULSE 69–107; RESP 18–22; TEMP 97.6–98.5; O2SAT 93–97
[2023-06-10] MEDS: diltiazem 30mg tablet PO SCH ×3 (01:05→17:55)
[2023-06-10 06:57] LABS: BASOPHILS % (AUTO) 0.3 % (0-1); EOSINOPHILS # (AUTO) 0.1 X10'3 (0-0.9); EOSINOPHILS % (AUTO) 0.9 % (0-6); HEMATOCRIT 37.4 % (35.0-45.0); HEMOGLOBIN 12.6 g/dl (12.0-16.0); LYMPHOCYTES # (AUTO) 0.9 X10'3 (1.1-4.8); LYMPHOCYTES % (AUTO) 14.5 % (21-51); MEAN CORPUSCULAR HEMOGLOBIN 29.1 PG (27.0-31.0); MEAN CORPUSCULAR HGB CONC 33.6 g/dL (33.0-36.5); MEAN CORPUSCULAR VOLUME 86.6 FL (78-98); MEAN PLATELET VOLUME 7.1 FL (7.4-10.4); MONOCYTES % (AUTO) 16.3 % (2-12); PLATELET COUNT 358 X10'3 (140-440); RED BLOOD COUNT 4.31 X10'6 (4.20-5.60); RED CELL DISTRIBUTION WIDTH 13.3 % (11.5-14.5); WHITE BLOOD COUNT 5.9 X10'3 (4.5-11.0)
[2023-06-10] MEDS: lurasidone 20mg tablet PO SCH (07:30)
[2023-06-10 07:34] LABS: ALANINE AMINOTRANSFERASE 52 U/L (12-78); ALBUMIN 2.2 G/DL (3.4-5.0); ALBUMIN/GLOBULIN RATIO 0.5 (1.1-1.5); ALKALINE PHOSPHATASE 62 IU/L (46-116); ANION GAP 8 (8-16); ASPARTATE AMINO TRANSFERASE 51 U/L (10-37); BILIRUBIN,TOTAL 0.4 MG/DL (0.1-1.0); BLOOD UREA NITROGEN 16 MG/DL (7-18); BUN/CREATININE RATIO 16.8 (10.0-20.0); CALCIUM 9.3 MG/DL (8.5-10.1); CHLORIDE 96 MMOL/L (99-107); CREATININE 0.95 MG/DL (0.40-0.90); GLUCOSE 94 MG/DL (70-104); POTASSIUM 3.4 MMOL/L (3.5-5.1); SODIUM 131 MMOL/L (135-145); TOTAL CARBON DIOXIDE 26.7 MMOL/L (24-32); TOTAL PROTEIN 6.4 G/DL (6.4-8.2); eCRCL 43 ML/MIN; eGFR 59 ML/MIN
[2023-06-10] MEDS ORDERED: digoxin 125mcg (0.125mg) tablet PO SCH (08:00)
[2023-06-10] MEDS: atorvastatin 10mg tablet PO SCH (08:50)
[2023-06-10] MEDS: EMPAGLIFLOZIN 10 MG TABLET PO SCH (08:51)
[2023-06-10] MEDS: metoprolol tartrate 50mg tablet PO SCH ×2 (08:51→21:53)
[2023-06-10] MEDS: aspirin 81mg tab.chew PO SCH (08:51)
[2023-06-10] MEDS: spironolactone 25 MG tablet PO SCH (08:52)
[2023-06-10] MEDS: CefTRIAXone 2gm/D5W 50ml BAG 50 ML IV SCH (08:52)
[2023-06-10] MEDS: furosemide 20 MG/2 ML vial IV SCH ×2 (08:52→21:50)
[2023-06-10] MEDS: azithromycin/NS 500mg/250ml 250 ML IV SCH (08:53)
[2023-06-10] MEDS: pantoprazole 40mg Tablet.DR PO SCH (08:59)
[2023-06-10 09:05] LABS: TOTAL CELLS COUNTED 100
[2023-06-10 09:08] LABS: PLATELET ESTIMATE NORMAL
[2023-06-10] MEDS ORDERED: lurasidone 20mg tablet PO ONE (13:35)
[2023-06-10] MEDS ORDERED: lurasidone 60mg tablet PO SCH (21:00)
[2023-06-10] MEDS: benztropine 1mg tablet PO SCH (21:51)
[2023-06-10] MEDS: quetiapine 100mg tablet PO SCH ×2 (21:56→22:25)
[2023-06-11] VITALS (10 sets, daily range): BP systolic 95–159; BP diastolic 50–91; PULSE 74–109; RESP 17–24; TEMP 97.4–98.6; O2SAT 90–98
[2023-06-11] MEDS: acetaminophen 325mg tablet PO SCH
[2023-06-11] MEDS: diltiazem 30mg tablet PO SCH ×4 (05:35→19:07)
[2023-06-11] MEDS: furosemide 20 MG/2 ML vial IV SCH ×2 (08:56→20:28)
[2023-06-11] MEDS: aspirin 81mg tab.chew PO SCH (08:57)
[2023-06-11] MEDS: fludrocortisone acetate 0.1mg tablet PO SCH (08:58)
[2023-06-11] MEDS: EMPAGLIFLOZIN 10 MG TABLET PO SCH (08:59)
[2023-06-11] MEDS: atorvastatin 10mg tablet PO SCH (08:59)
[2023-06-11] MEDS: metoprolol tartrate 50mg tablet PO SCH ×2 (09:00→20:37)
[2023-06-11] MEDS: CefTRIAXone 2gm/D5W 50ml BAG 50 ML IV SCH (09:01)
[2023-06-11] MEDS: azithromycin/NS 500mg/250ml 250 ML IV SCH (09:01)
[2023-06-11] MEDS: spironolactone 25 MG tablet PO SCH (09:01)
[2023-06-11] MEDS: pantoprazole 40mg Tablet.DR PO SCH (09:14)
[2023-06-11] MEDS: lurasidone 20mg tablet PO SCH (09:14)
[2023-06-11] MEDS ORDERED: magnesium hydroxide 30ml (MOM) UD suspension PO PRN (17:50)
[2023-06-11] MEDS: docusate sod 100mg capsule PO SCH (20:28)
[2023-06-11] MEDS: lurasidone 60mg tablet PO SCH (20:29)
[2023-06-11] MEDS: benztropine 1mg tablet PO SCH (20:29)
[2023-06-11] MEDS: quetiapine 100mg tablet PO SCH (20:29)
[2023-06-12] VITALS (9 sets, daily range): BP systolic 110–155; BP diastolic 54–98; PULSE 71–120; RESP 19–26; TEMP 97.5–98.2; O2SAT 96–98
[2023-06-12] MEDS ORDERED: digoxin 125mcg (0.125mg) tablet PO ONE (03:15)
[2023-06-12] MEDS: diltiazem 30mg tablet PO SCH ×4 (06:18→17:44)
[2023-06-12 07:19] LABS: BASOPHILS % (AUTO) 0.2 % (0-1); EOSINOPHILS # (AUTO) 0.1 X10'3 (0-0.9); LYMPHOCYTES # (AUTO) 0.8 X10'3 (1.1-4.8); LYMPHOCYTES % (AUTO) 9.4 % (21-51); MEAN CORPUSCULAR HGB CONC 33.4 g/dL (33.0-36.5); MONOCYTES # (AUTO) 0.8 X10'3 (0-0.9); MONOCYTES % (AUTO) 9.2 % (2-12); NEUTROPHILS # (AUTO) 7.2 X10'3 (1.8-7.7); NEUTROPHILS % (AUTO) 80.2 % (42-75); PLATELET COUNT 470 X10'3 (140-440); RED BLOOD COUNT 4.48 X10'6 (4.20-5.60); RED CELL DISTRIBUTION WIDTH 13.1 % (11.5-14.5); WHITE BLOOD COUNT 8.9 X10'3 (4.5-11.0)
[2023-06-12 07:38] LABS: ALANINE AMINOTRANSFERASE 69 U/L (12-78); ALBUMIN 2.5 G/DL (3.4-5.0); ALBUMIN/GLOBULIN RATIO 0.5 (1.1-1.5); ALKALINE PHOSPHATASE 73 IU/L (46-116); ANION GAP 11 (8-16); ASPARTATE AMINO TRANSFERASE 49 U/L (10-37); BILIRUBIN,TOTAL 0.6 MG/DL (0.1-1.0); BLOOD UREA NITROGEN 10 MG/DL (7-18); CALCIUM 9.6 MG/DL (8.5-10.1); CHLORIDE 98 MMOL/L (99-107); CREATININE 0.83 MG/DL (0.40-0.90); GLUCOSE 146 MG/DL (70-104); POTASSIUM 3.5 MMOL/L (3.5-5.1); SODIUM 133 MMOL/L (135-145); TOTAL CARBON DIOXIDE 24.5 MMOL/L (24-32); TOTAL PROTEIN 7.2 G/DL (6.4-8.2); eCRCL 50 ML/MIN; eGFR 69 ML/MIN
[2023-06-12] MEDS: CefTRIAXone 2gm/D5W 50ml BAG 50 ML IV SCH (08:24)
[2023-06-12] MEDS: benztropine 1mg tablet PO SCH (08:24)
[2023-06-12] MEDS: docusate sod 100mg capsule PO SCH ×2 (08:25→19:26)
[2023-06-12] MEDS: lurasidone 60mg tablet PO SCH (08:25)
[2023-06-12] MEDS: EMPAGLIFLOZIN 10 MG TABLET PO SCH (08:25)
[2023-06-12] MEDS: acetaminophen 325mg tablet PO SCH ×3 (08:25→15:33)
[2023-06-12] MEDS: pantoprazole 40mg Tablet.DR PO SCH (08:26)
[2023-06-12] MEDS: fludrocortisone acetate 0.1mg tablet PO SCH (08:26)
[2023-06-12] MEDS: metoprolol tartrate 25mg tablet PO SCH ×2 (08:26→19:26)
[2023-06-12] MEDS: atorvastatin 10mg tablet PO SCH (08:27)
[2023-06-12] MEDS: azithromycin 250mg tablet PO SCH (08:27)
[2023-06-12] MEDS: lurasidone 20mg tablet PO SCH (08:27)
[2023-06-12] MEDS: aspirin 81mg tab.chew PO SCH (08:27)
[2023-06-12] MEDS: furosemide 20MG tablet PO SCH ×2 (08:27→19:26)
[2023-06-12] MEDS: spironolactone 25 MG tablet PO SCH (08:28)
[2023-06-12] MEDS: quetiapine 100mg tablet PO SCH (19:25)
[2023-06-12] MEDS: clonazePAM 1mg tablet PO PRN (22:08)
[2023-06-13] MEDS: acetaminophen 325mg tablet PO SCH ×4 (00:30→16:00)
[2023-06-13] MEDS: diltiazem 30mg tablet PO SCH ×5 (00:30→17:53)
[2023-06-13 02:00] VITALS: BP 154/88; PULSE 104; RESP 20; TEMP 97.5; O2SAT 95
[2023-06-13 06:00] VITALS: BP 111/66; PULSE 63; RESP 22; TEMP 96.8; O2SAT 97
[2023-06-13] MEDS: azithromycin 250mg tablet PO SCH (07:50)
[2023-06-13] MEDS: furosemide 20MG tablet PO SCH (07:50)
[2023-06-13] MEDS: docusate sod 100mg capsule PO SCH (07:50)
[2023-06-13] MEDS: metoprolol tartrate 25mg tablet PO SCH (07:52)
[2023-06-13] MEDS: atorvastatin 10mg tablet PO SCH (07:52)
[2023-06-13] MEDS: pantoprazole 40mg Tablet.DR PO SCH (07:52)
[2023-06-13] MEDS: CefTRIAXone 2gm/D5W 50ml BAG 50 ML IV SCH (07:53)
[2023-06-13] MEDS: fludrocortisone acetate 0.1mg tablet PO SCH (07:59)
[2023-06-13] MEDS: EMPAGLIFLOZIN 10 MG TABLET PO SCH (08:00)
[2023-06-13] MEDS: aspirin 81mg tab.chew PO SCH (09:11)
[2023-06-13] MEDS: spironolactone 25 MG tablet PO SCH (09:11)
[2023-06-13 11:00] VITALS: BP 116/65; PULSE 77; RESP 22; TEMP 97.8; O2SAT 100
[2023-06-13] MEDS: lurasidone 20mg tablet PO SCH (13:00)
[2023-06-13 14:13] LABS: BASOPHILS % (AUTO) 0.3 % (0-1); EOSINOPHILS # (AUTO) 0.1 X10'3 (0-0.9); LYMPHOCYTES # (AUTO) 0.9 X10'3 (1.1-4.8); LYMPHOCYTES % (AUTO) 9.2 % (21-51); MEAN CORPUSCULAR HEMOGLOBIN 28.7 PG (27.0-31.0); MEAN CORPUSCULAR HGB CONC 33.3 g/dL (33.0-36.5); MEAN CORPUSCULAR VOLUME 86.3 FL (78-98); MEAN PLATELET VOLUME 6.9 FL (7.4-10.4); MONOCYTES # (AUTO) 1.2 X10'3 (0-0.9); NEUTROPHILS # (AUTO) 7.1 X10'3 (1.8-7.7); NEUTROPHILS % (AUTO) 76.5 % (42-75); PLATELET COUNT 535 X10'3 (140-440); RED BLOOD COUNT 4.17 X10'6 (4.20-5.60); RED CELL DISTRIBUTION WIDTH 12.8 % (11.5-14.5); WHITE BLOOD COUNT 9.2 X10'3 (4.5-11.0)
[2023-06-13 14:29] LABS: ALBUMIN 2.3 G/DL (3.4-5.0); ANION GAP 7 (8-16); BLOOD UREA NITROGEN 9 MG/DL (7-18); BUN/CREATININE RATIO 10.2 (10.0-20.0); CALCIUM 9.4 MG/DL (8.5-10.1); CHLORIDE 101 MMOL/L (99-107); CREATININE 0.88 MG/DL (0.40-0.90); GLUCOSE 99 MG/DL (70-104); POTASSIUM 3.8 MMOL/L (3.5-5.1); SODIUM 137 MMOL/L (135-145); eCRCL 47 ML/MIN; eGFR 64 ML/MIN
[2023-06-13 15:00] VITALS: BP 122/55; PULSE 105; RESP 15; TEMP 97.2; O2SAT 94
== END 2023-06-13 19:39 | DRG 190 ==
LOC: ER 20:32 → ED HOLD 06-05 04:45 → PCU 3S 06-05 20:54
PROVIDERS: ADMIT Internal Medicine; ATTEND Family Medicine
PROC: B32T1ZZ Computerized Tomography (CT Scan) of Left Pulmonary Artery using Low Osmolar Contrast (ICD-10-PCS; principal; 2023-06-05)
PROC: B3201ZZ Computerized Tomography (CT Scan) of Thoracic Aorta using Low Osmolar Contrast (ICD-10-PCS; 2023-06-05)
PROC: B32S1ZZ Computerized Tomography (CT Scan) of Right Pulmonary Artery using Low Osmolar Contrast (ICD-10-PCS; 2023-06-05)
DX: I21.4 Non-ST elevation (NSTEMI) myocardial infarction (principal); N17.0 Acute kidney failure with tubular necrosis; G93.41 Metabolic encephalopathy; I50.33 Acute on chronic diastolic (congestive) heart failure; E87.1 Hypo-osmolality and hyponatremia; J18.9 Pneumonia, unspecified organism; I69.351 Hemiplegia and hemiparesis following cerebral infarction affecting right dominant side; G93.89 Other specified disorders of brain; J44.0 Chronic obstructive pulmonary disease with (acute) lower respiratory infection; I48.91 Unspecified atrial fibrillation; Z66 Do not resuscitate; E83.42 Hypomagnesemia; I25.5 Ischemic cardiomyopathy; I49.3 Ventricular premature depolarization; Z20.822 Contact with and (suspected) exposure to COVID-19; E66.01 Morbid (severe) obesity due to excess calories; G80.9 Cerebral palsy, unspecified; E87.6 Hypokalemia; F20.9 Schizophrenia, unspecified; F31.9 Bipolar disorder, unspecified; K21.9 Gastro-esophageal reflux disease without esophagitis; G89.4 Chronic pain syndrome; N18.9 Chronic kidney disease, unspecified; R09.02 Hypoxemia; G47.33 Obstructive sleep apnea (adult) (pediatric); Z88.0 Allergy status to penicillin; Z88.2 Allergy status to sulfonamides; Z88.3 Allergy status to other anti-infective agents; Z79.899 Other long term (current) drug therapy
CPT/HCPCS: 36415; 70450; 71045; 71275; 80048; 80053; 81001; 82140; 82948; 83605; 83735; 83880; 84132; 84145; 84484; 85007; 85025; 85610; 85730; 87077; 87081; 87088; 87186; 87502; 87503; 87811; 92508; 92616; 93005; 93306; 93308; 97110; 97161; 97530; 99291; 99292; A4314; A4615; A5200; A6250; A6258; A6449; C1758; C9113; G0378; J0456; J0696; J1160; J1644; J1940; J2250; J3010; J3480; J3490; J7040; J7131; Q9967

== ENCOUNTER 2024-01-07 09:31 | Emergency (ER) | payer MEDICAID ==
[~2024-01-07] VITALS: Ht 167.6 cm; Wt 122.7 kg
[~2024-01-07 09:31] MED LIST changes: -FLUO20CA39 PO; -QUET-1 PO
[2024-01-07 09:33] VITALS: BP 144/66; PULSE 54; RESP 18; TEMP 98.6; O2SAT 96
== END 2024-01-07 11:39 | disposition home or self-care (01) ==
LOC: ER 09:32
DX: R04.0 Epistaxis (principal); F31.9 Bipolar disorder, unspecified; Z88.0 Allergy status to penicillin; Z88.2 Allergy status to sulfonamides; Z79.899 Other long term (current) drug therapy
CPT/HCPCS: 30901; 99284

== ENCOUNTER 2024-01-08 00:47 | Emergency (ER) | payer MEDICAID ==
[~2024-01-08] VITALS: Ht 172.7 cm; Wt 105.2 kg
[2024-01-08 00:58] VITALS: RESP 14
[2024-01-08] MEDS: LIDOcaine 2% Viscous 15ml cup MM ONE (02:10)
[2024-01-08] MEDS: oxymetazoline 15 ML nasal spray NS ONE (02:10)
[2024-01-08] MEDS: tranexamic acid 100mg/ml inj. TP ONE (02:10)
[2024-01-08 04:15] VITALS: BP 113/75; PULSE 74; O2SAT 97
== END 2024-01-08 09:30 | disposition home or self-care (01) ==
LOC: ER 00:48
DX: R04.0 Epistaxis (principal); F03.90 Unspecified dementia, unspecified severity, without behavioral disturbance, psychotic disturbance, mood disturbance, and anxiety; G47.39 Other sleep apnea; F31.9 Bipolar disorder, unspecified; F20.9 Schizophrenia, unspecified; Z88.0 Allergy status to penicillin; Z88.2 Allergy status to sulfonamides; Z79.899 Other long term (current) drug therapy
CPT/HCPCS: 30901; 99284; A6449

== ENCOUNTER 2025-04-13 06:03 | Emergency (ER) | payer MEDICARE, MEDICAID ==
[~2025-04-13] VITALS: Ht 167.6 cm; Wt 95.5 kg
[~2025-04-13 06:03] MED LIST changes: +ZOLP5TAB18 PO; -ZOLP5TAB8 PO
[2025-04-13 06:07] VITALS: TEMP 96.3
--- NOTE | 2025-04-13 06:20 | Physician Documentation ---
History of Present Illness ~ Chief Complaint: Nose bleed Stated Complaint: COUGHING BLOOD Time Seen by MD: 06:17 Primary Medical Doctor: Vinod PADILLA This is a 69-year-old female on Eliquis who presents for evaluation of epistaxis that started shortly prior to arrival. Evidently the staff has been some concern whether she coughed up a large clot of blood. She feels that the blood is going down the back of her throat. No trauma. No palliating or aggravating factors. Denies chest pain or lightheadedness. History of cerebral palsy. Medication Reconciliation Allergies: Coded Allergies: Penicillins (Verified Allergy, Unknown, 06/05/23) sulfamethoxazole (Verified Allergy, Unknown, 05/06/21) trimethoprim (Verified Allergy, Unknown, 05/06/21) Scheduled Cholecalciferol (Vitamin D3) (Vitamin D3), 1 CAP PO DAILY Clonazepam* (Klonopin*), 1 MG PO BID Ferrous Sulfate (Ferosul), 325 MG PO DAILY Lurasidone HCl (Latuda), 1 TAB PO HS Lurasidone HCl (Latuda), 1 TAB PO DAILY Metoprolol Tartrate (Lopressor tablet), 2 TAB PO DAILY, (Reported) Omeprazole (Omeprazole), 1 CAP PO DAILY Sodium Chloride (SODIUM CHLORIDE tablet), 1 GM PO QID Tramadol HCl (Tramadol HCl), 1 TAB PO BID, (Reported) Zolpidem Tartrate (Zolpidem Tartrate), 5 MG PO HS [benzotropine], 1 MG HS, (Reported) Scheduled PRN Clonazepam* (Klonopin*), 1 TAB PO Q12H PRN PRN for anxiety, (Reported) Past Medical History Past Medical History: Seizures, Sleep Apnea, Bowel Obstruction, Constipation, Bipolar, Schizophrenia Past Surgical History: no surgical history Alcohol Use: None Drug Use: none Lives In: Assisted Care Review of Systems ROS 10 point review of systems was performed and unless noted above in HPI is negative for acute process/complaint. Physical Exam Vital Signs: Temperature: 96.3, Source: Temporal, Heart Rate: 80, Respiratory Rate: 18, BP: 133/80, Pulse Oximetry: 93, Weight: 95.450 Physical Exam GENERAL: Awake, alert, oriented, GCS 15, no apparent distress, non-toxic appearing, answers questions, follows commands appropriately. HEENT: Atraumatic, normocephalic, pupils equal, extraocular muscles intact, sclerae anicteric, mucus membranes moist, oropharynx is clear, no stridor. NECK: supple, full active range of motion, trachea midline, no thyromegaly, no lymphadenopathy, no JVD. CARDIOVASCULAR: regular rate/rhythm, no murmurs/gallops/rubs, Pulses are 2+ in all extremities and symmetric. Capillary refill less than 2 seconds. PULMONARY: Nonlabored, good air movement ,no respiratory distress, speaking in full sentences, clear to auscultation bilaterally, no wheezing, no ronchi, no rales, no accessory muscle use. GASTROINTESTINAL: Soft, non-tender, non-distended, normal active bowel sounds, no organomegaly, no pulsatile masses, no CVA tenderness. NEUROLOGIC: Lucid with normal mental status. Normal facial symmetry. Moves all extremities symmetrically and with purpose. No truncal ataxia. Speech is fluid without evidence of dysarthria or aphasia, no focal deficits appreciated. MUSCULOSKELETAL: There is full range of motion of all extremities. There is no joint pain or joint swelling or joint erythema. There is no muscle pain or tenderness or swelling. EXTREMITIES: warm, well-perfused, no cyanosis, no clubbing, no edema, no acute deformities. Skin: warm, dry, no rashes or lesions, no jaundice, no petechiae orpurpura. No ecchymosis. PSYCHIATRIC: Normal affect, normal insight, normal concentration. Focused exam: [Dark red nonpulsatile epistaxis out of the right Stokes. There is some postnasal bloody drip.] Progress Results/Orders Results/Orders Completed Orders - YUNIEL PEREZ DO Oxymetazoline Nasal [place] (Afrin Nasal S (04/13/25 06:10) Medications Received in ER Medications (Trade) Dose Ordered Sig/Franko Route PRN Reason Start Time Stop Time Status Last Admin Dose Admin (Afrin nasal spray) 2 spr ONCE ONCE NS 04/13/25 06:10 04/13/25 06:11 DC 04/13/25 06:21 2 SPR Vital Signs 04/13/25 04/13/25 06:07 07:11 Temp 96.3 Pulse 80 76 Resp 18 14 B/P (MAP) 133/80 117/74 (88) Pulse Ox 93 95 O2 Flow Rate 0 Medical Decision Making Additional information obtaine: other (EMS) Findings Facility Status: ED Holds, RME process The plan was discussed with the patient, who demonstrates clear understanding of the plan and is in agreement with the plan unless otherwise noted in the chart. All questions have been answered, all concerns were addressed unless otherwise documented. I was available throughout their ED stay for frequent reassessment and questions. Differential Diagnoses (considered and possible or likely): [Anterior epistaxis, less likely Posterior epistaxis, less likely anemia requiring transfusion in the hemorrhagic shock] ??Differential Diagnoses (considered and unlikely, not requiring evaluation currently): [No evidence of trauma] MDM Data Please see [facility] for the following: Independent Historians and external Records Review. Historian: [Patient] Independent Historians: ?[Record review, AMS] Medication Management: [Reviewed medication list] Social History and determinants: [Reviewed] Please see the body of the note for the following: Any independent interpretations of ECG, imaging studies. All vitals signs/haemodynamics, ordered tests were independently reviewed and interpreted by myself. Nursing triage complaint and vitals reviewed, additional nursing notes were revi ewed as available and I agree unless otherwise noted or documented in contradiction in the chart Vital Signs: Independently reviewed Labs: Independently interpreted Imaging: Independently interpreted Old Medical Records: Independently reviewed, see [facility] for relevant summary and information Pulse Oximetry: [97%] interpreted as [normal on room air] by me [Assembly Hand: [Regular Rate, Regular rhythm, no ectopy, NSR] reviewed and interpreted by me] Additionally notably showing: [Hemodynamically stable] Tests considered but not ordered include: [Hematologic workup and imaging has been considered but does not appear to be necessary given clinical nature of diagnosis] Social Determinants of Health Impact: Patient was evaluated in [facility] [place] due to below par ratio of patient to medical providers. [] Comorbid Conditions Impacting Present Evaluation and Care/Treatment: [Anticoagulated, cerebral palsy] Management Discussions with other Healthcare Providers: [None] Treatment and Disposition Medication Management (Given or considered): [Afrin]. See EMR for details Consideration for Hospitalization/Escalation/Deescalation of Care: Admission for observation has been considered, [however the patient is able to tolerate p.o., their symptoms are controlled, they are able to rely on oral medications, and their chief complaint/diagnosis can be managed on outpatient basis.] ?ED Course:?[Date: Apr 13, 2025 Time: 08:12 the patient has a clamp applied, was allowed to have epistaxis spontaneously resolved, clamp was removed and there has been no recurrence of bleeding. ] ?Shared decision making:?[Patient is hemodynamically stable for discharge home with follow with their primary care provider. [ ] Specific and cautious return precautions provided and discussed with full understanding. Any incidental findings were also discussed and follow up recommendations given. [] All questions answered. Patient/family were able to verbalize back return precautions. Patient/family agree to plan. Copies of imaging and laboratory studies were provided.] Code status:?FULL Please see the full Electronic Medical Record for full details of nursing documentation, medications list, other records of complete past medical history and conditions, vital signs, laboratory studies, and any radiologic study inter pretations by radiologists. Portions of this note were completed using [employer] dictation software and as a result there may exist minor errors in spelling. I have reviewed elements of past family and social history and agree as included in note. Ear Diff. Dx: Considerations: Unlikely: Other Eye Diff. Dx: Considerations: Unlikely: Other Nose Diff. Dx: Considerations: Include: Other (See the main body of the note) Tooth Diff. Dx: Considerations: Unlikely: Other Throat Diff Dx: Considerations: Unlikely: Other Departure Disposition: 01 HOME / SELF CARE / HOMELESS Impression: Primary Impression: Epistaxis Additional Impression: Anticoagulated on Eliquis Condition: Improved Discharge Instructions: Nosebleed, Adult Referrals: NO PRIMARY CARE PROVIDER (PCP) Education Educated: Patient Educated regarding: diagnosis, treatment, prognosis, need for follow up Signature Scribe Signature: No scribe Attestation: Date: Apr 13, 2025 Time: 06:20 This note accurately reflects clinical decisions, work performed by myself, Yuniel Perez, YUNIEL MILLER DO Apr 13, 2025 06:20
[2025-04-13] MEDS: oxymetazoline 15 ML nasal spray NS ONE (06:21)
[2025-04-13 11:01] VITALS: BP 123/82; PULSE 83; RESP 18; O2SAT 95
== END 2025-04-13 11:04 | disposition home or self-care (01) ==
LOC: ER 06:04
DX: R04.0 Epistaxis (principal); G47.30 Sleep apnea, unspecified; F20.9 Schizophrenia, unspecified; F31.9 Bipolar disorder, unspecified; Z88.0 Allergy status to penicillin; Z88.2 Allergy status to sulfonamides; Z79.01 Long term (current) use of anticoagulants; Z79.899 Other long term (current) drug therapy
CPT/HCPCS: 99283